=== PATIENT | female | born 1965 | race Caucasian/White ===

== ENCOUNTER → 2017-04-21 | Outpatient (CLI) | payer BC ==
[~2017-04-21] MED LIST: BIRTH CONTROL PO; SYNTHROID0.05 MG/TA PO; [UNRECOGNIZED DRUG - OTHER] PO
== END ==
LOC: MC.RAD 12:58
DX: Z12.31 Encounter for screening mammogram for malignant neoplasm of breast (principal); N60.02 Solitary cyst of left breast; N60.01 Solitary cyst of right breast

== ENCOUNTER → 2018-06-03 | Outpatient (CLI) | payer BC | LOC: MC.RAD 05-23 13:40 | DX: Z12.31 Encounter for screening mammogram for malignant neoplasm of breast (principal) ==

== ENCOUNTER → 2018-06-09 | Outpatient (CLI) | payer BC | LOC: MC.RAD 10:00 | DX: N60.02 Solitary cyst of left breast (principal); R92.1 Mammographic calcification found on diagnostic imaging of breast ==

== ENCOUNTER → 2018-12-19 | Outpatient (CLI) | payer OTHER | LOC: MC.RAD 07:47 | DX: N63.24 Unspecified lump in the left breast, lower inner quadrant (principal) | CPT/HCPCS: G0279 ==

== ENCOUNTER → 2019-06-21 | Outpatient (CLI) | payer OTHER | LOC: MC.RAD 12:59 | DX: Z12.31 Encounter for screening mammogram for malignant neoplasm of breast (principal); N63.24 Unspecified lump in the left breast, lower inner quadrant | CPT/HCPCS: G0279 ==

== ENCOUNTER → 2020-07-02 | Outpatient (CLI) | payer OTHER | LOC: MC.RAD 08:49 | DX: Z12.31 Encounter for screening mammogram for malignant neoplasm of breast (principal) ==

== ENCOUNTER → 2021-07-30 | Outpatient (CLI) | payer OTHER | LOC: MC.RAD 09:00 | DX: Z12.31 Encounter for screening mammogram for malignant neoplasm of breast (principal) ==

== ENCOUNTER → 2022-07-31 | Outpatient (CLI) | payer OTHER | LOC: MC.RAD 08:59 | DX: Z12.31 Encounter for screening mammogram for malignant neoplasm of breast (principal) ==

== ENCOUNTER → 2024-08-14 | Outpatient (CLI) | payer BC | LOC: MC.RAD 09:54 | DX: Z12.31 Encounter for screening mammogram for malignant neoplasm of breast (principal) ==